=== PATIENT | female | born 1955 ===

== ENCOUNTER 2018-05-13 07:26 | Outpatient (CLI) | payer OTHER ==
[~2018-05-13 07:26] MED LIST: NABUMETONE500 MG PO; PERCOCET 5/3251 TAB PO
== END 2018-05-13 07:28 | disposition home or self-care (01) ==
LOC: SONOGRAMA 07:26 → MAMO-SONO 07:45
DX: Z12.11 Encounter for screening for malignant neoplasm of colon (principal); K30 Functional dyspepsia; K58.9 Irritable bowel syndrome, unspecified; R93.3 Abnormal findings on diagnostic imaging of other parts of digestive tract

== ENCOUNTER 2018-06-29 08:48 | Emergency (ER) | payer OTHER ==
[~2018-06-29] VITALS: Ht 160 cm; Wt 53.1 kg
[2018-06-29] MEDS ORDERED: PROTONIX40 MG PO (09:39)
[2018-06-29] MEDS ORDERED: NORVASC5 MG PO (09:39)
[2018-06-29] MEDS ORDERED: SYNTHROID75 MCG PO (09:39)
[2018-06-29] MEDS ORDERED: AXID PO (09:39)
== END 2018-06-29 15:43 | disposition home or self-care (01) ==
LOC: ER 08:48
DX: K29.60 Other gastritis without bleeding (principal)

== ENCOUNTER → 2018-07-10 | Outpatient (CLI) | payer OTHER ==
[~2018-07-10] MED LIST changes: +AXID PO; +NORVASC5 MG PO; +PROTONIX40 MG PO; +SYNTHROID75 MCG PO
== END | disposition home or self-care (01) ==
LOC: TOM 07:30
DX: K30 Functional dyspepsia (principal); K58.9 Irritable bowel syndrome, unspecified; Z86.010 Personal history of colon polyps; Z09 Encounter for follow-up examination after completed treatment for conditions other than malignant neoplasm; C73 Malignant neoplasm of thyroid gland; E89.0 Postprocedural hypothyroidism; E78.2 Mixed hyperlipidemia; I11.9 Hypertensive heart disease without heart failure; F32.89 Other specified depressive episodes; M79.7 Fibromyalgia; E55.9 Vitamin D deficiency, unspecified; E56.8 Deficiency of other vitamins
CPT/HCPCS: 74177; 76536; Q9965

== ENCOUNTER 2019-03-08 07:47 | Outpatient (CLI) | payer OTHER | END 2019-03-08 07:50 | disposition home or self-care (01) | LOC: SONOGRAMA 07:47 | DX: K82.4 Cholesterolosis of gallbladder (principal); R10.13 Epigastric pain ==

== ENCOUNTER 2022-04-18 10:05 | Emergency (ER) | payer OTHER ==
[~2022-04-18] VITALS: Ht 157.5 cm; Wt 40.8 kg
== END 2022-04-18 14:04 | disposition home or self-care (01) ==
LOC: ER 10:05
DX: K29.70 Gastritis, unspecified, without bleeding (principal); I10 Essential (primary) hypertension; E03.9 Hypothyroidism, unspecified; K59.00 Constipation, unspecified; K80.20 Calculus of gallbladder without cholecystitis without obstruction

== ENCOUNTER 2022-05-13 07:31 | Outpatient (CLI) | payer OTHER | END 2022-05-13 07:47 | disposition home or self-care (01) | LOC: RAD 07:31 | PROVIDERS: ATTEND Surgery | DX: R10.32 Left lower quadrant pain (principal); C73 Malignant neoplasm of thyroid gland | CPT/HCPCS: 74177; 76536; Q9965 ==